=== PATIENT | female | born 1995 | race Caucasian/White ===

== ENCOUNTER 2016-04-11 03:58 | Emergency (ER) | payer BC, OTHER ==
[~2016-04-11] VITALS: Ht 160 cm; Wt 47.2 kg
--- NOTE | 2016-04-11 04:15 | ED Abdominal Pain ---
General Stated Complaint: ABD PAIN Source of Information: Patient, RN Notes Reviewed Exam Limitations: No Limitations History of Present Illness Time Seen By Provider: 04:14 Initial Comments Patient presents c/ c/o abdominal pain c/ N/V x 2 days. Nothing makes it better or worse. Not aware of fever. Pain cramping and rated @ 8/10. Timing/Duration: 2-3 Days Severity/Quality: Moderate (8/10), Cramping Location: Generalized Abdomen Radiation: No Radiation Activities at Onset: Rest Modifying Factors: Improves With Other (none) Associated Symptoms: Nausea/Vomiting Allergies and Home Medications Allergies Coded Allergies: No Known Drug Allergies (Unverified , 04/11/16) Home Medications Cefdinir 300 Mg Capsule #20 300 MG PO BID Prescribed by: AUTUMN BAER on 04/11/16 0616 Famotidine 20 Mg Tablet #10 20 MG PO BID Prescribed by: AUTUMN BAER on 04/11/16 0605 Ondansetron HCl 4 Mg Tab #10 4-8 MG PO Q6H PRN PRN NAUSEA/VOMITING Prescribed by: AUTUMN BAER on 04/11/16 0605 Review of Systems Constitutional: see HPI Gastrointestinal: See HPI Abdominal Pain Nausea Vomiting All Other Systems Reviewed Negative Unless Noted: Yes Past [id number] Hx Patient Social History Recent Foreign Travel: No Contact w/Someone Who Travel: No Physical Exam Vital Signs Capillary Refill : General Appearance: WD/WN mild distress HEENT: other (a little on the dry side) Neck: normal inspection Respiratory: no respiratory distress Cardiovascular: regular rate, rhythm Gastrointestinal: softNo distended, No guarding, No rebound, tenderness ( diffuse) Rectal: deferred Back: No CVA tenderness (R), No CVA tenderness (L) Neurologic/Psychiatric: no motor/sensory deficits alert oriented x 3 other ( appears pretty miserable upon arrival) Skin: warm/dry Progress/Results/Core Measures Results/Orders Lab Results Laboratory Tests Test 04/11/16 04:28 04/11/16 04:35 Range/Units Alanine Aminotransferase (ALT/SGPT) 14 0-55 U/L Albumin 3.8 3.2-4.5 G/DL Alkaline Phosphatase 59 40-136 U/L Anion Gap 9 5-14 MMOL/L Aspartate Amino Transf (AST/SGOT) 18 5-34 U/L BUN/Creatinine Ratio 18 Basophils # (Auto) 0.0 0.0-0.1 10^3/uL Basophils (%) (Auto) 0 0-10 % Blood Urea Nitrogen 13 7-18 MG/DL Calcium Level 9.6 8.5-10.1 MG/DL Carbon Dioxide Level 21 21-32 MMOL/L Chloride Level 111 H 98-107 MMOL/L Creatinine 0.73 0.60-1.30 MG/DL Eosinophils # (Auto) 0.1 0.0-0.3 10^3/uL Eosinophils (%) (Auto) 2 0-10 % Estimat Glomerular Filtration Rate > 60 Glucose Level 97 70-105 MG/DL Hematocrit 40 35-52 % Hemoglobin 13.2 11.5-16.0 G/DL Lipase 35 8-78 U/L Lymphocytes # (Auto) 2.7 1.0-4.0 X 10^3 Lymphocytes (%) (Auto) 36 12-44 % Mean Corpuscular Hemoglobin 29 25-34 PG Mean Corpuscular Hemoglobin Concent 33 32-36 G/DL Mean Corpuscular Volume 87 80-99 FL Mean Platelet Volume 10.7 H 7.4-10.4 FL Monocytes # (Auto) 0.6 0.0-1.0 X 10^3 Monocytes (%) (Auto) 8 0-12 % Neutrophils # (Auto) 3.9 1.8-7.8 X 10^3 Neutrophils (%) (Auto) 53 42-75 % Platelet Count 306 130-400 10^3/uL Potassium Level 3.8 3.6-5.0 MMOL/L Red Blood Count 4.56 4.35-5.85 10^6/uL Red Cell Distribution Width 13.1 10.0-14.5 % Sodium Level 141 135-145 MMOL/L Total Bilirubin 0.3 0.1-1.0 MG/DL Total Protein 7.1 6.4-8.2 G/DL White Blood Count 7.4 4.3-11.0 10^3/uL Urine Bacteria MODERATE H /HPF Urine Bilirubin NEGATIVE NEGATIVE Urine Casts NONE /LPF Urine Clarity CLEAR Urine Color YELLOW Urine Crystals NONE /LPF Urine Culture Indicated YES Urine Glucose (UA) NEGATIVE NEGATIVE Urine Ketones NEGATIVE NEGATIVE Urine Leukocyte Esterase 2+ H NEGATIVE Urine Mucus NEGATIVE /LPF Urine Nitrite NEGATIVE NEGATIVE Urine Test NEGATIVE NEGATIVE Urine Protein NEGATIVE NEGATIVE Urine RBC NONE /HPF Urine RBC (Auto) 1+ H NEGATIVE Urine Specific [place] 1.020 1.016-1.022 Urine Squamous Epithelial Cells 2-5 /HPF Urine Urobilinogen NORMAL NORMAL MG/DL Urine WBC 2-5 /HPF Urine pH 6 5-9 Micro Results Microbiology 04/11/16 Urine Culture - Final, Complete Escherichia Coli My Orders Orders-AUTUMN BAER DO Cbc With Automated Diff (04/11/16 04:15) Comprehensive Metabolic Panel (04/11/16 04:15) Hcg,Qualitative Urine (04/11/16 04:15) Lipase (04/11/16 04:15) Ua Culture If Indicated (04/11/16 04:15) Ondansetron Oral Dissolve Tab (Zofran (04/11/16 04:45) Urine Culture (04/11/16 04:35) Acute Abd Series (04/11/16 05:18) Ondansetron Oral Dissolve Tab (Zofran (04/11/16 05:30) Ketorolac Injection (Toradol Injection) (04/11/16 06:15) Ceftriaxone Injection (Rocephin Injectio (04/11/16 06:15) Lidocaine 1% Injection (Xylocaine 1% Inj (04/11/16 06:15) Im/Sub-Q Injection Non-Ab Ed (04/11/16 ) Im Injection Antibiotic Ed (04/11/16 ) Medications Given in ED Vital Signs/I&O Departure Impression Impression: Primary Impression: Urinary tract infection Additional Impressions: Nausea and vomiting Abdominal pain Disposition: 01 HOME, SELF-CARE Condition: Stable Departure-Patient Inst. Decision time for Depature: 06:14 Referrals: [facility] (PCP) Primary Care Physician Patient Instructions: Nausea and Vomiting, Adult (DC), Urinary Tract Infection , Adult (DC) Add. Discharge Instructions: RECOMMEND 1000 mg OF TYLENOL EVERY 6 HOURS NEEDED FOR PAIN &/OR FEVER. Scripts Cefdinir 300 Mg [id number] Mg PO BID UTI #20 CAP Ref 0 Prov:AUTUMN BAER DO 04/11/16 Ondansetron HCl (Zofran)4 Mg Tab4-8 Mg PO Q6H PRN NAUSEA/VOMITING #10 TAB Ref 0 Prov:AUTUMN BAER DO 04/11/16 Famotidine (Pepcid)20 Mg [id number] Mg PO BID #10 TAB Ref 0 Prov:AUTUMN BAER DO 04/11/16 AUTUMN BAER DO Apr 11, 2016 04:15 Decision time for Depature: 06:14 Referrals: [facility] (PCP) Primary Care Physician Patient Instructions: Nausea and Vomiting, Adult (DC), Urinary Tract Infection , Adult (DC) Add. Discharge Instructions: RECOMMEND 1000 mg OF TYLENOL EVERY 6 HOURS NEEDED FOR PAIN &/OR FEVER. Scripts Cefdinir 300 Mg [id number] Mg PO BID UTI #20 CAP Ref 0 Prov:AUTUMN BAER DO 04/11/16 Ondansetron HCl (Zofran)4 Mg Tab4-8 Mg PO Q6H PRN NAUSEA/VOMITING #10 TAB Ref 0 Prov:AUTUMN BAER DO 04/11/16 Famotidine (Pepcid)20 Mg [id number] Mg PO BID #10 TAB Ref 0 Prov:AUTUMN BAER DO 04/11/16 AUTUMN BAER DO Apr 11, 2016 04:15
[2016-04-11 04:44] LABS: BASOPHILS % (AUTO) 0 % (0-10); EOSINOPHILS # (AUTO) 0.1 10^3/uL (0.0-0.3); EOSINOPHILS % (AUTO) 2 % (0-10); LYMPHOCYTES # (AUTO) 2.7 X 10^3 (1.0-4.0); LYMPHOCYTES % (AUTO) 36 % (12-44); MEAN CORPUSCULAR HEMOGLOBIN 29 PG (25-34); MEAN CORPUSCULAR HGB CONC 33 G/DL (32-36); MEAN CORPUSCULAR VOLUME 87 FL (80-99); MEAN PLATELET VOLUME 10.7 FL (7.4-10.4); MONOCYTES # (AUTO) 0.6 X 10^3 (0.0-1.0); MONOCYTES % (AUTO) 8 % (0-12); NEUTROPHILS # (AUTO) 3.9 X 10^3 (1.8-7.8); NEUTROPHILS % (AUTO) 53 % (42-75); PLATELET COUNT 306 10^3/uL (130-400); RED BLOOD COUNT 4.56 10^6/uL (4.35-5.85); RED CELL DISTRIBUTION WIDTH 13.1 % (10.0-14.5); WHITE BLOOD COUNT 7.4 10^3/uL (4.3-11.0)
[2016-04-11] MEDS ORDERED: ONDANSETRON 4 MG (ZOFRAN) ORAL DISSOLVE TAB PO ONE ×2 (04:45→05:30)
[2016-04-11 04:48] LABS: BILIRUBIN,URINE NEGATIVE (NEGATIVE); KETONES,URINE NEGATIVE (NEGATIVE); LEUKOCYTE ESTERASE ,URINE 2+ (NEGATIVE); NITRITE,URINE NEGATIVE (NEGATIVE); PH,URINE 6 (5-9); PROTEIN,URINE NEGATIVE (NEGATIVE); UROBILINOGEN,URINE NORMAL (NORMAL)
[2016-04-11 05:05] LABS: ALANINE AMINOTRANSFERASE 14 U/L (0-55); ALBUMIN 3.8 G/DL (3.2-4.5); ANION GAP 9 MMOL/L (5-14); ASPARTATE AMINO TRANSFERASE 18 U/L (5-34); BILIRUBIN,TOTAL 0.3 MG/DL (0.1-1.0); BLOOD UREA NITROGEN 13 MG/DL (7-18); BUN/CREATININE RATIO 18; CALCIUM 9.6 MG/DL (8.5-10.1); CARBON DIOXIDE 21 MMOL/L (21-32); CHLORIDE 111 MMOL/L (98-107); CREATININE SERUM 0.73 MG/DL (0.60-1.30); GFR ESTIMATED > 60; GLUCOSE 97 MG/DL (70-105); LIPASE 35 U/L (8-78); POTASSIUM 3.8 MMOL/L (3.6-5.0); SODIUM 141 MMOL/L (135-145); TOTAL PROTEIN 7.1 G/DL (6.4-8.2)
[2016-04-11] MEDS ORDERED: ONDN4T PO (06:05)
[2016-04-11] MEDS ORDERED: FAMO-119 PO (06:05)
[2016-04-11] MEDS ORDERED: cefTRIAXone 1 GM (ROCEPHIN) VIAL IM ONE (06:15)
[2016-04-11] MEDS ORDERED: KETOROLAC 60 MG/2 ML VIAL IM ONE (06:15)
[2016-04-11] MEDS ORDERED: LIDOCAINE 1% INJ 20 ML (XYLOCAINE) VIAL INJ ONE (06:15)
[2016-04-11] MEDS ORDERED: CEFD300C3 PO (06:16)
--- NOTE | 2016-04-11 06:22 | Diagnostic Imaging Report ---
INDICATION: Vomiting with epigastric pain x3 days. FINDINGS: The lungs are clear. There is no free air under the diaphragm. There is very little stool or gas throughout the majority of the colon. There are no air-fluid levels. No distended small bowel loops. There is moderate stool noted in the rectal vault. No pathologic calcification. No bony abnormalities. IMPRESSION: Negative abdomen series. Dictated by: Dictated on workstation # [id number]
[2016-04-11 06:25] VITALS: BP 116/88
== END 2016-04-11 06:25 | disposition home or self-care (01) ==
LOC: ER 04:02
DX: N39.0 Urinary tract infection, site not specified (principal); R11.2 Nausea with vomiting, unspecified
CPT/HCPCS: 36415; 74022; 80053; 81000; 83690; 84703; 85025; 87077; 87088; 87186; 96372; 99283